=== PATIENT | female | born 1970 | race Caucasian/White ===

== ENCOUNTER → 2021-03-07 09:01 | Outpatient (CLI) | payer MEDICAID, SELFPAY ==
[2021-03-07 10:02] LABS: Absolute Lymphocyte Count 2.34 X10^3/uL (0.83-4.51); Absolute Neutrophil Count 5.4 X10^3/uL (2.0-7.7); Basophil# 0.08 X10^3/uL; Basophil% 0.9 % (0-1); Eosinophil# 0.57 X10^3/uL; Eosinophils% 6.3 % (0-5); Hematocrit 46.8 % (37-47); Hemoglobin 14.9 g/dL (12.0-15.0); Lymphocyte # 2.34 X10^3/ul (0.83-4.51); Lymphocyte % 25.8 % (19-41); Mean Corp Hgb Conc 31.8 g/dL (32-36); Mean Corpuscular Hgb 29.7 pg (27.0-32.0); Mean Corpuscular Volume 93.4 fL (81-99); Mean Platelet Vol. 9.9 fl (6.2-12.0); Monocyte# 0.65 X10^3/uL; Monocyte% 7.2 % (0-10); NRBC Flagged by Analyzer 0 % (0-5); Neutrophil # 5.42 X10^3/uL (2.7-7.7); Neutrophil % 59.6 % (47-70); Platelet Count 321 K/mm3 (150-450); RBC Distribution Width CV 12.8 % (11.6-14.6); Red Blood Count 5.01 M/mm3 (4.2-5.4); White Blood Count 9.1 K/mm3 (4.4-11.0)
[2021-03-07 10:44] LABS: ALB/GLOB Ratio 0.7 RATIO (0.9-2.4); AST(SGOT) 14 U/L (15-37); Alanine Aminotransfer ALT/SGPT 31 U/L (13-56); Albumin, Serum 3.3 g/dL (3.2-5.0); Alkaline Phosphatase 55 U/L (45-117); Anion Gap 7 (5-15); BUN 13 mg/dL (7-18); BUN/Creat Ratio 14.9 RATIO (10-20); Calcium,Total 8.9 mg/dL (8.5-10.1); Chloride 104 mmol/L (98-107); Cholesterol 205 mg/dL (200); Creatinine, Serum 0.88 mg/dL (0.55-1.02); EST Glomerular Filtration Rate 73 mL/min (>60); Est Glom Filt Rate - Afr Amer 89 mL/min (>60); Globulin 4.6 g/dL (2.2-4.2); Glucose 108 mg/dL (74-106); High Density Lipoprotein 39 mg/dL; Potassium 3.9 mmol/L (3.5-5.1); Protein, Total 7.9 g/dL (6.4-8.2); Sodium Level 138 mmol/L (136-145); Thyroid Stim Hormone (TSH) 0.83 uIU/mL (0.358-3.74); Triglycerides 133 mg/dL; Very Low Density Lipoprotein 27 mg/dL (5-40)
== END ==
PROVIDERS: Referring Provider Nurse Practitioner Adult Health; Visit Provider Nurse Practitioner Adult Health
DX: B34.9 Viral infection, unspecified (principal)
CPT/HCPCS: 36415; 80053; 80061; 84443; 85025

== ENCOUNTER → 2021-10-23 | Outpatient (CLI) | payer MEDICAID, SELFPAY ==
--- NOTE | 2021-10-23 14:00 | CYST_PTH ---
PATIENT: PETER GIBBONS LOC: [facility] U#:[id number] AGE/SX: 51/F ROOM: RE10/23/[address]: Dr. Fortino Parks MD : 1970 BED: DIS: 10/23/2021 SPEC #: [id number] RECD: 10/23/21 14:42 STATUS: EVANGELISTA DAIGLE #: [id number] VON: 10/23/21 14:[address]: Fortino Parks DEPT: SURGICAL PATHOLOGY RECD BY: uLdivina Wong ENTERED: 10/24/21 07:39 SP TYPE: Cyst OTHR DR: [place] [facility] Tissues: CYST Procedures: Surgery Specimen Level III HEADER OPERATION: Excision, left cheek cyst PRE-OP DIAGNOSIS: Cyst of left cheek TISSUE SUBMITTED: Left cheek cyst MICROSCOPIC DIAGNOSIS Left cheek cyst, biopsy: Mild chronic folliculitis. Keratin debris present. See Comment. AM:am 10/25/2021 COMMENT Keratin debris is suggestive of an epidermal inclusion cyst. Clinical correlation is suggested. MICROSCOPIC DESCRIPTION Slides are reviewed. GROSS DESCRIPTION Received in fixative is one container labeled with the patient's name and designated left cheek tissue. The specimen consists of three pieces of skin and soft tissue measuring in aggregate 1.5 x 0.5 x 0.3. The entire specimen is submitted in one cassette. /SERENA:chloe 10/24/21 TC:5 CPT: 51739
== END | disposition home or self-care (01) ==
PROVIDERS: Visit Provider Surgery
DX: L72.8 Other follicular cysts of the skin and subcutaneous tissue (principal)
CPT/HCPCS: 88304

== ENCOUNTER → 2022-07-16 | Outpatient (CLI) | payer MEDICAID, SELFPAY ==
[2022-07-16 09:42] LABS: Absolute Lymphocyte Count 2.41 X10^3/uL (0.83-4.51); Basophil# 0.05 X10^3/uL; Basophil% 0.6 % (0-1); Eosinophil# 0.41 X10^3/uL; Eosinophils% 4.8 % (0-5); Hematocrit 44.5 % (37-47); Hemoglobin 14.3 g/dL (12.0-15.0); Lymphocyte # 2.41 X10^3/ul (0.83-4.51); Lymphocyte % 28.4 % (19-41); Mean Corp Hgb Conc 32.1 g/dL (32-36); Mean Corpuscular Hgb 30.4 pg (27.0-32.0); Mean Corpuscular Volume 94.7 fL (81-99); Mean Platelet Vol. 10.2 fl (6.2-12.0); Monocyte# 0.61 X10^3/uL; Monocyte% 7.2 % (0-10); NRBC Flagged by Analyzer 0 % (0-5); Neutrophil # 4.98 X10^3/uL (2.7-7.7); Neutrophil % 58.6 % (47-70); Platelet Count 271 K/mm3 (150-450); RBC Distribution Width CV 13.5 % (11.6-14.6); RBC Distribution Width SD 47.5 fl (35.1-43.9); White Blood Count 8.5 K/mm3 (4.4-11.0)
[2022-07-16 10:00] LABS: Hemoglobin A1c 6.3 % (3.8-5.6)
[2022-07-16 10:22] LABS: ALB/GLOB Ratio 0.8 RATIO (0.9-2.4); AST(SGOT) 18 U/L (15-37); Alanine Aminotransfer ALT/SGPT 29 U/L (13-56); Albumin, Serum 3.3 g/dL (3.2-5.0); Alkaline Phosphatase 42 U/L (45-117); Anion Gap 4 (5-15); BUN 10 mg/dL (7-18); BUN/Creat Ratio 11.6 RATIO (10-20); Calcium,Total 8.8 mg/dL (8.5-10.1); Chloride 108 mmol/L (98-107); Cholesterol 194 mg/dL (200); Creatinine, Serum 0.86 mg/dL (0.55-1.02); EST Glomerular Filtration Rate 74 mL/min (>60); Est Glom Filt Rate - Afr Amer 90 mL/min (>60); Globulin 4.1 g/dL (2.2-4.2); Glucose 113 mg/dL (74-106); High Density Lipoprotein 39 mg/dL; Luteinizing Hormone 2.4 mIU/mL; Potassium 4.5 mmol/L (3.5-5.1); Protein, Total 7.4 g/dL (6.4-8.2); Sodium Level 138 mmol/L (136-145); Thyroid Stim Hormone (TSH) 1.33 uIU/mL (0.358-3.74); Triglycerides 112 mg/dL; Very Low Density Lipoprotein 22 mg/dL (5-40)
== END | disposition home or self-care (01) ==
PROVIDERS: Referring Provider Nurse Practitioner Family; Visit Provider Nurse Practitioner Family
DX: R61 Generalized hyperhidrosis (principal); E78.5 Hyperlipidemia, unspecified; R73.03 Prediabetes
CPT/HCPCS: 36415; 80053; 80061; 83001; 83002; 83036; 84443; 85025

== ENCOUNTER → 2022-07-24 | Outpatient (CLI) | payer MEDICAID, SELFPAY ==
--- NOTE | 2022-07-24 10:44 | BI_ITS ---
MAMMOGRAPHY - BILATERAL SCREENING REASON FOR EXAM: Female, 51 years old. Routine annual screening examination. PERTINENT HISTORY: Non-contributory. TECHNIQUE: Digital bilateral breast zana (3D mammographic acquisition) in the CC and MLO projections. 2-D mediolateral oblique (MLO) and craniocaudad (CC) views of both breasts were obtained. CAD: Full Field Digital Mammography with Computer Added Detection was performed. COMPARISON: None. Baseline examination. FINDINGS: Breast Composition: There are scattered areas of fibroglandular density. There are no dominant masses or suspicious calcifications. No other significant abnormalities are identified. BI/SCRN MAMM (CAD)W/ZANA BILAT IMPRESSION: Negative screening mammogram. Yearly followup mammogram recommended. (A) ASSESSMENT CATEGORY: BIRADS Category 1: Negative. A letter regarding these results will be sent to the patient by the facility within 30 days. Approximately 10% of breast cancers are not detected by mammography. A normal mammogram should not delay biopsy of a clinically suspicious abnormality. [id number] Electronically Signed: Jason Harvey MD at 12:10 EDT ,
== END | disposition home or self-care (01) ==
LOC: OPBI 10:43
PROVIDERS: Referring Provider Nurse Practitioner Women's Health; Visit Provider Nurse Practitioner Women's Health
DX: Z12.31 Encounter for screening mammogram for malignant neoplasm of breast (principal)
CPT/HCPCS: 77063; 77067

== ENCOUNTER 2022-09-27 08:29 | Day surgery (SDC) | payer MEDICAID, SELFPAY ==
[2022-09-27] MEDS: Lactated Ringers 1,000 ML 15 ML IV (08:56)
[2022-09-27 08:58] VITALS: BP 130/80; PULSE 97; RESP 18; TEMP 36.6; O2SAT 99; BMI 46.9
--- NOTE | 2022-09-27 09:28 | HP.PCM_ITS ---
History and Physical Date of Admission: 09/27/22 Chief Complaint: screening for c-scope/ Cyst to L cheek Patient Intake Coordinator Required: No Is patient in pain?: No Allergies erythromycin base [Erythromycin Base] Allergy (Verified 08/27/22 13:56) AnaphylaxisPenicillins Allergy (Verified 08/27/22 13:56) Anaphylaxishydrocodone Adverse Reaction (Verified 08/27/22 13:56) Upset StomachNSAIDS (Non-Steroidal Anti-Inflamma Adverse Reaction (Verified 08/27/22 13:56) Other Medications cetirizine 10 mg capsule (Zyrtec) 10 mg PO DAILY 11/03/13 [History Confirmed 08/27/22] meclizine 25 mg tablet 25 mg PO TID PRN Dizziness #30 tabs 11/03/13 [Rx Confirmed 08/27/22] hydrochlorothiazide 12.5 mg tablet 12.5 mg PO DAILY 08/27/22 [History Confirmed 08/27/22] lisinopril 10 mg tablet 10 mg PO DAILY 08/27/22 [History Confirmed 08/27/22] magnesium oxide 500 mg tablet 750 mg PO DAILY 08/27/22 [History Confirmed 08/27/22] PFSH Surgical History S/P wisdom tooth extraction Family History Mother Asthma DiabetesSister No problems noted. Social History Smoking Status: Never smoker alcohol intake: current alcohol intake frequency: holidays/special occasions only substance use type: marijuana HPI HPI HPI: 52-year-old female. On October 23, 2021 I excised what clinically appeared to be a left cheek sebaceous cyst. Pathology demonstrated mild chronic folliculitis with keratin debris present. The keratin debris suggestive of an epidermal inclusion cyst. The patient is referred back by the fellow [facility] clinic because there is concern about recurrent swelling in this area. The patient has also been instructed that she should pursue a screening colonoscopy. She denies any abdominal pain. No bright red blood per rectum or melena. She states that she thinks her father had some benign colon polyps removed. There is no known history of colon cancer. She notes that the previous area that I excised for her left cheek is clearly recurring. ROS General General: No weight change, appetite, fatigue, colon cancer, breast cancer or weakness HEENT HEENT: No difficulty swallowing, eye injury, eye surgery, swollen glands or hoarseness Endo Endocrine: No thyroid disease, diabetes mellitus, thyroid cancer, Hair loss, heat intolerance or cold intolerance Skin Skin: No rash or changing moles Additional Details: regrowth on cheek Breast Breast: No left breast lump, right breast lump, nipple discharge, breast pain, abnormal mammogram, abnormal US or breast enlargement Musc Musculoskeletal: No back problems, arthritis, rheumatoid arthritis, gout or joint pain Cardio Cardiovascular: No murmur, pacemaker, heart disease, atrial fibrillation, high blood pressure, heart attack, heart stent, palpitations, shortness of breat with exertion or chest pain Psych Psychiatric: No depression, anxiety or hearing voices Resp Respiratory: No shortness of breath, No sleep apnea, No cough, No COPD, No asthma, No emphysema and No wheezing Gastro Gastrointestinal: No abdominal pain, No nausea or vomiting, No diarrhea, No constipation, No blood in stool, No acid reflux, No hemorrhoids, No ulcers, No gallbladder problem and No black,tarry stools Felix Hematologic: Yes blood thinners, No blood disorders, No bleeding, No anemia and No blood clots Additional Details: daily asa 81 mg Neuro Neurologic: No system reviewed and no additional complaints, except as documented, No as per HPI, No abnormal gait, No abnormal hearing, No abnormal movements, No abnormal speech, No behavioral changes, No burning sensations, No confusion, No convulsions, No disequilibrium, No dizziness, No localized weakness, No frequent falls, No headache(s), No lack of coordination, No loss of vision, No memory loss, No numbness, No other visual disturbances, No radicular pain, No restless legs, No sensory deficit, No syncope, No tingling, No tremor(s), No weakness and No other Exam Const General: cooperative, comfortable and no acute distress [facility] Head: normal to inspection Other: Left mid superior cheek there is a very nicely healed oblique incision but at the lateral edge there is clearly recurrence of a sebaceous cyst. Currently measures 6 mm in diameter Neck Neck: normal visual inspection Resp Effort & Inspection: normal respiratory effort Cardio Rate: regular rate Rhythm: regular rhythm GI Other: Soft, notably overweight, no focal mass, difficult to palpate any internal organs. Skin General: no rashes or lesions noted Neuro General: patient alert, patient awake and patient oriented x3 Extrem General: no calf tenderness Psych Appearance: grossly normal Assessment and Plan Assessment and Plan (1) Sebaceous cyst: Status: Acute (2) Screening for intestinal cancer: Status: Acute Medications: New lisinopril 10 mg PO DAILY hydrochlorothiazide 12.5 mg PO DAILY magnesium oxide 750 mg PO DAILY Plan I reviewed the previous pathology from the cheek lesion and there was evidence of ruptured sebaceous cyst. This likely explains the recurrence. I propose for her a repeat elliptical excision for complete removal. She is aware that the football type excision will need to be a little bit bigger and that we will need to do a layered closure again. She is aware would like to schedule and proceed. Regarding her need for screening colonoscopy I discussed the technique, benefit, risk, alternatives. She has had an opportunity to ask and have questions answered. We will schedule and proceed as noted. Copy: Monique Mayo LPN , [facility] Fortino Parks M.D., F.A.C.S The patient presents today for screening colonoscopy with possible biopsy or polypectomy as indicated. She is aware of the technique, benefit, risk, alternatives. She has had an opportunity to ask and have questions answered. We will proceed as noted. Fortino Parks M.D., F.A.C.S.
--- NOTE | 2022-09-27 09:30 | COLBX_PTH ---
PATIENT: PETER GIBBONS LOC: EN U#:[id number] AGE/SX: 52/F ROOM: RE09/27/[address]: Dr. Fortino Parks MD : 1970 BED: DIS: 09/27/2022 SPEC #: [id number] RECD: 09/27/22 12:31 STATUS: EVANGELISTA OXANA #: [id number] VON: 09/27/22 09:[address]: Fortino Parks DEPT: SURGICAL PATHOLOGY RECD BY: Kaitlin Penn ENTERED: 09/27/22 12:31 SP TYPE: COLON BX OTHR DR: [place] [facility] Tissues: COLON BIOPSY Procedures: Surgery Specimen Level IV HEADER OPERATION: Colonoscopy (MAC) with biopsy PRE-OP DIAGNOSIS: Sebaceous cyst, screening TISSUE SUBMITTED: Hepatic flexure polyp biopsy MICROSCOPIC DIAGNOSIS Hepatic flexure polyp, biopsy: Tubular adenoma. SJ:ashvin 09/30/2022 MICROSCOPIC DESCRIPTION Slides are reviewed. GROSS DESCRIPTION Received in fixative is one container labeled with the patient's name and designated hepatic flexure polyp. The specimen consists of two irregular fragments of light delarosa soft tissue that in aggregate measure 0.7 x 0.2 x 0.1 cm. The specimen is totally submitted in one cassette. / AM:ashvin 09/27/2022 TC:1 CPT: 40722
[2022-09-27 10:21] VITALS: BP 130/80; BP 94/61; PULSE 92; RESP 16; TEMP 37.3; O2SAT 97
--- NOTE | 2022-09-27 10:21 | OP.CCLET_ITS ---
[facility]27/2022 [facility] This procedure was performed on Tuesday, September 27, 2022. My impressions and recommendations are as follows: Impressions : - Non-thrombosed internal hemorrhoids and internal hemorrhoids that prolapse with straining, but spontaneously regress to the resting position (Grade II) found on digital rectal exam. - One 3 mm polyp at the hepatic flexure, removed with a cold biopsy forceps. Resected and retrieved. Recommendations : - Discharge patient to home. - Resume previous diet. - Continue present medications. - Repeat colonoscopy in 5 years for surveillance based on pathology results. - Telephone my office for pathology results in 1 week. My findings are described in the full procedure note, which is enclosed. If I can be of further assistance, please feel free to contact me at Doctor phone number(s): Work: . Sincerely, Fortino Parks MD 09/27/2022 10:21:06 AM This report has been signed electronically.
--- NOTE | 2022-09-27 10:21 | OP.COLON_ITS ---
Patient Name: Ingrid Fisher Procedure Date: 09/27/2022 9:56 AM Date of : 1970 Age: 52 Procedure: Colonoscopy Indications: Screening for colorectal malignant neoplasm Providers: Fortino Parks MD Medicines: See the Anesthesia note for documentation of the administered medications Patient Profile: Last Colonoscopy: none. The patient's first colonoscopy is today. Complications: No immediate complications. Procedure: Pre-Anesthesia Assessment: - Prior to the procedure, a History and Physical was performed, and patient medications and allergies were reviewed. The patient's tolerance of previous anesthesia was also reviewed. The risks and benefits of the procedure and the sedation options and risks were discussed with the patient. All questions were answered, and informed consent was obtained. Prior Anticoagulants: The patient has taken no previous anticoagulant or antiplatelet agents. ASA Grade Assessment: II - A patient with mild systemic disease. After reviewing the risks and benefits, the patient was deemed in satisfactory condition to undergo the procedure. After I obtained informed consent, the scope was passed under direct vision. Throughout the procedure, the patient's blood pressure, pulse, and oxygen saturations were monitored continuously. The adult colonoscope was introduced through the anus and advanced to the cecum, identified by appendiceal orifice and ileocecal valve. The colonoscopy was performed without difficulty. The patient tolerated the procedure well. The quality of the bowel preparation was good. The ileocecal valve and the appendiceal orifice were photographed. Scope In: 10:03:09 AM Scope Withdrawal Time 0 hours 7 minutes 42 seconds Scope Out: 10:15:08 AM Total Procedure Duration Time 0 hours 11 minutes 59 seconds Findings: The digital rectal exam findings include non-thrombosed internal hemorrhoids and internal hemorrhoids that prolapse with straining, but spontaneously regress to the resting position (Grade II). A 3 mm polyp was found in the hepatic flexure. The polyp was sessile. The polyp was removed with a cold biopsy forceps. Resection and retrieval were complete. Impression: - Non-thrombosed internal hemorrhoids and internal hemorrhoids that prolapse with straining, but spontaneously regress to the resting position (Grade II) found on digital rectal exam. - One 3 mm polyp at the hepatic flexure, removed with a cold biopsy forceps. Resected and retrieved. Recommendation: - Discharge patient to home. - Resume previous diet. - Continue present medications. - Repeat colonoscopy in 5 years for surveillance based on pathology results. - Telephone my office for pathology results in 1 week. Procedure Code(s): --- Professional --- 18682, Colonoscopy, flexible; with biopsy, single or multiple Diagnosis Code(s): --- Professional --- Z12.11, Encounter for screening for malignant neoplasm of colon K64.1, Second degree hemorrhoids D12.3, Benign neoplasm of transverse colon (hepatic flexure or splenic flexure) CPT copyright 2017 [employer]. All rights reserved. The codes documented in this report are preliminary and upon boiler blower review may be revised to meet current compliance requirements. Fortino Parks MD 09/27/2022 10:21:06 AM This report has been signed electronically. Number of Addenda: 0 Note Initiated On: 09/27/2022 9:56 AM
[2022-09-27 10:25] VITALS: BP 116/71; BP 130/80; PULSE 81; RESP 16; O2SAT 96
[2022-09-27 10:30] VITALS: BP 117/68; BP 130/80; PULSE 89; RESP 16; O2SAT 96
[2022-09-27 10:35] VITALS: BP 115/67; BP 130/80; PULSE 70; RESP 16; TEMP 37.1; O2SAT 99
[2022-09-27 10:53] VITALS: BP 130/80
== END 2022-09-27 11:02 | disposition home or self-care (01) ==
LOC: EN 08:31 → AC 08:32
PROVIDERS: Visit Provider Surgery
PROC: 0DJD8ZZ Inspection of Lower Intestinal Tract, Via Natural or Artificial Opening Endoscopic (ICD-10-PCS; CPT 45378; principal; 2022-09-27 09:25)
DX: Z12.11 Encounter for screening for malignant neoplasm of colon (principal); K64.8 Other hemorrhoids; L72.3 Sebaceous cyst; Z79.01 Long term (current) use of anticoagulants; K64.1 Second degree hemorrhoids; D12.3 Benign neoplasm of transverse colon; Z79.899 Other long term (current) drug therapy
CPT/HCPCS: 45380; 88305; J7120; J2405

== ENCOUNTER → 2023-02-05 | Outpatient (CLI) | payer MEDICAID, SELFPAY ==
--- NOTE | 2023-02-05 09:07 | RAD_ITS ---
STUDY: X-RAY - UNILATERAL RIBS ( LEFT ) WITH CHEST REASON FOR EXAM: Female, 52 years old. Pleurodynia. TECHNIQUE - RIBS: 4 view(s) of the ribs. TECHNIQUE - CHEST: Single frontal view of the chest. COMPARISON: None. FINDINGS - RIBS: Osteopenia. No displaced rib fracture identified. FINDINGS - CHEST: The lungs are clear and expanded. There is no demonstrated pleural abnormality. Normal size heart. Normal mediastinum and femi. Normal visualized pulmonary arteries. Normal visualized aortic arch and descending thoracic aorta. Normal visualized thoracic spine. Normal visualized ribs, clavicles, and shoulders. No abnormality of the visualized soft tissue structures of the upper abdomen. RAD/Ribs Uni Min 3V w/PA Chest IMPRESSION: RIBS: Osteopenia without displaced rib fracture. CHEST: Normal x-ray examination of the chest. Electronically Signed: Tee Wylie MD at 12:42 EST ,
[2023-02-05 09:24] LABS: Hematocrit 48.6 % (37-47); Hemoglobin 15.4 g/dL (12.0-15.0); Mean Corp Hgb Conc 31.7 g/dL (32-36); Mean Corpuscular Volume 94.7 fL (81-99); Mean Platelet Vol. 9.8 fl (6.2-12.0); Platelet Count 340 K/mm3 (150-450); RBC Distribution Width CV 13.4 % (11.6-14.6); RBC Distribution Width SD 47.3 fl (35.1-43.9); Red Blood Count 5.13 M/mm3 (4.2-5.4); White Blood Count 11.4 K/mm3 (4.4-11.0)
[2023-02-05 10:11] LABS: ALB/GLOB Ratio 0.7 RATIO (0.9-2.4); AST(SGOT) 17 U/L (15-37); Alanine Aminotransfer ALT/SGPT 27 U/L (13-56); Albumin, Serum 3.4 g/dL (3.2-5.0); Alkaline Phosphatase 47 U/L (45-117); Anion Gap 6 (5-15); BUN 11 mg/dL (7-18); BUN/Creat Ratio 10.9 RATIO (10-20); Calcium,Total 9.1 mg/dL (8.5-10.1); Chloride 99 mmol/L (98-107); Creatinine, Serum 1.01 mg/dL (0.55-1.02); EST Glomerular Filtration Rate 62 mL/min (>60); Est Glom Filt Rate - Afr Amer 75 mL/min (>60); Globulin 4.9 g/dL (2.2-4.2); Glucose 152 mg/dL (74-106); Potassium 4.3 mmol/L (3.5-5.1); Protein, Total 8.3 g/dL (6.4-8.2); Sodium Level 133 mmol/L (136-145)
== END | disposition home or self-care (01) ==
PROVIDERS: Referring Provider Nurse Practitioner Family; Visit Provider Nurse Practitioner Family
DX: E11.9 Type 2 diabetes mellitus without complications (principal); R07.81 Pleurodynia
CPT/HCPCS: 36415; 71101; 80053; 82043; 85027

== ENCOUNTER → 2023-08-19 | Outpatient (CLI) | payer MEDICAID, SELFPAY ==
--- NOTE | 2023-08-19 13:20 | BI_ITS ---
MAMMOGRAPHY - BILATERAL SCREENING REASON FOR EXAM: Female, 53 years old. Routine annual screening examination. PERTINENT HISTORY: Non-contributory. TECHNIQUE: Digital bilateral breast zana (3D mammographic acquisition) in the CC and MLO projections. 2-D mediolateral oblique (MLO) and craniocaudad (CC) views of both breasts were obtained. CAD: Full Field Digital Mammography with Computer Added Detection was performed. COMPARISON: Comparison is made with prior study dated July 24, 2022. FINDINGS: Breast Composition: The breasts are almost entirely fatty. There are no dominant masses or suspicious calcifications. No other significant abnormalities are identified. There has been no significant change since the prior study. BI/SCRN MAMM (CAD)W/ZANA BILAT IMPRESSION: Stable bilateral screening mammogram. Yearly follow-up mammogram recommended. (A) ASSESSMENT CATEGORY: BIRADS Category 1: Negative. A letter regarding these results will be sent to the patient by the facility within 30 days. Approximately 10% of breast cancers are not detected by mammography. A normal mammogram should not delay biopsy of a clinically suspicious abnormality. [id number] Electronically Signed: Jason Harvey MD at 14:11 EDT ,
== END | disposition home or self-care (01) ==
LOC: OPBI 13:19
PROVIDERS: Referring Provider Nurse Practitioner Family; Visit Provider Nurse Practitioner Family
DX: Z12.31 Encounter for screening mammogram for malignant neoplasm of breast (principal)
CPT/HCPCS: 77063; 77067

== ENCOUNTER → 2023-09-20 | Outpatient (CLI) | payer MEDICAID, SELFPAY ==
[2023-09-20 10:07] LABS: Absolute Lymphocyte Count 2.39 X10^3/uL (0.83-4.51); Absolute Neutrophil Count 3.3 X10^3/uL (2.0-7.7); Basophil# 0.06 X10^3/uL; Basophil% 0.9 % (0-1); Eosinophil# 0.51 X10^3/uL; Eosinophils% 7.5 % (0-5); Hematocrit 43.4 % (37-47); Hemoglobin 13.9 g/dL (12.0-15.0); Lymphocyte # 2.39 X10^3/ul (0.83-4.51); Lymphocyte % 35.2 % (19-41); Mean Corpuscular Hgb 30.1 pg (27.0-32.0); Mean Corpuscular Volume 93.9 fL (81-99); Mean Platelet Vol. 9.6 fl (6.2-12.0); Monocyte# 0.52 X10^3/uL; Monocyte% 7.7 % (0-10); NRBC Flagged by Analyzer 0 % (0-5); Neutrophil # 3.28 X10^3/uL (2.7-7.7); Neutrophil % 48.3 % (47-70); Platelet Count 264 K/mm3 (150-450); RBC Distribution Width CV 13.4 % (11.6-14.6); RBC Distribution Width SD 45.7 fl (35.1-43.9); Red Blood Count 4.62 M/mm3 (4.2-5.4); White Blood Count 6.8 K/mm3 (4.4-11.0)
[2023-09-20 10:38] LABS: ALB/GLOB Ratio 0.8 RATIO (0.9-2.4); AST(SGOT) 17 U/L (15-37); Alanine Aminotransfer ALT/SGPT 25 U/L (13-56); Albumin, Serum 3.1 g/dL (3.2-5.0); Alkaline Phosphatase 39 U/L (45-117); Anion Gap 2 (5-15); BUN 13 mg/dL (7-18); BUN/Creat Ratio 17.1 RATIO (10-20); Calcium,Total 8.8 mg/dL (8.5-10.1); Chloride 106 mmol/L (98-107); Cholesterol 182 mg/dL (200); Creatinine, Serum 0.76 mg/dL (0.55-1.02); EST Glomerular Filtration Rate 85 mL/min (>60); Est Glom Filt Rate - Afr Amer 103 mL/min (>60); Globulin 3.9 g/dL (2.2-4.2); Glucose 114 mg/dL (74-106); High Density Lipoprotein 39 mg/dL; Potassium 4.5 mmol/L (3.5-5.1); Sodium Level 136 mmol/L (136-145); Thyroid Stim Hormone (TSH) 1.06 uIU/mL (0.358-3.74); Triglycerides 159 mg/dL; Very Low Density Lipoprotein 32 mg/dL (5-40)
== END | disposition home or self-care (01) ==
LOC: LAB 09:42
PROVIDERS: Referring Provider Nurse Practitioner Family; Visit Provider Nurse Practitioner Family
DX: I10 Essential (primary) hypertension (principal); E11.9 Type 2 diabetes mellitus without complications; E66.9 Obesity, unspecified
CPT/HCPCS: 36415; 80053; 80061; 82043; 84443; 85025

== ENCOUNTER → 2024-02-11 | Outpatient (CLI) | payer MEDICAID, SELFPAY ==
[2024-02-11 16:57] LABS: Absolute Lymphocyte Count 3.06 X10^3/uL (0.83-4.51); Absolute Neutrophil Count 5.5 X10^3/uL (2.0-7.7); Basophil# 0.06 X10^3/uL; Basophil% 0.6 % (0-1); Eosinophils% 4.2 % (0-5); Hematocrit 46.6 % (37-47); Hemoglobin 14.9 g/dL (12.0-15.0); Lymphocyte # 3.06 X10^3/ul (0.83-4.51); Lymphocyte % 31.8 % (19-41); Mean Corpuscular Hgb 29.6 pg (27.0-32.0); Mean Corpuscular Volume 92.6 fL (81-99); Mean Platelet Vol. 9.4 fl (6.2-12.0); Monocyte# 0.54 X10^3/uL; Monocyte% 5.6 % (0-10); NRBC Flagged by Analyzer 0 % (0-5); Neutrophil # 5.53 X10^3/uL (2.7-7.7); Neutrophil % 57.6 % (47-70); Platelet Count 309 K/mm3 (150-450); RBC Distribution Width CV 13.7 % (11.6-14.6); RBC Distribution Width SD 46.7 fl (35.1-43.9); Red Blood Count 5.03 M/mm3 (4.2-5.4); White Blood Count 9.6 K/mm3 (4.4-11.0)
[2024-02-11 17:25] LABS: ALB/GLOB Ratio 0.8 RATIO (0.9-2.4); AST(SGOT) 13 U/L (15-37); Alanine Aminotransfer ALT/SGPT 24 U/L (13-56); Albumin, Serum 3.5 g/dL (3.2-5.0); Alkaline Phosphatase 49 U/L (45-117); Anion Gap 5 (5-15); BUN 14 mg/dL (7-18); BUN/Creat Ratio 16.7 RATIO (10-20); Calcium,Total 9.1 mg/dL (8.5-10.1); Chloride 103 mmol/L (98-107); Creatinine, Serum 0.84 mg/dL (0.55-1.02); EST Glomerular Filtration Rate 76 mL/min (>60); Est Glom Filt Rate - Afr Amer 92 mL/min (>60); Globulin 4.4 g/dL (2.2-4.2); Glucose 99 mg/dL (74-106); Microalbumin,Random Urine 7.7 mg/L (NO RANGE EST.); Potassium 3.7 mmol/L (3.5-5.1); Protein, Total 7.9 g/dL (6.4-8.2); Sodium Level 136 mmol/L (136-145)
== END | disposition home or self-care (01) ==
LOC: VSLAB 16:38
PROVIDERS: PCP Nurse Practitioner Family; Visit Provider Nurse Practitioner Family
DX: E11.9 Type 2 diabetes mellitus without complications (principal); I10 Essential (primary) hypertension
CPT/HCPCS: 36415; 80053; 82043; 84443; 85025